=== PATIENT | female | born 1940 | race Caucasian/White ===

== ENCOUNTER 2017-03-23 08:15 | Emergency (ER) | payer MEDICARE ==
[2017-03-23] MEDS ORDERED: PROAIR RESPICL90 MCG INH (14:28)
[2017-03-23] MEDS ORDERED: ELAVIL50 MG PO (14:29)
[2017-03-23] MEDS ORDERED: TENORMIN25 MG PO (14:29)
[2017-03-23] MEDS ORDERED: CELEXA40 MG PO (14:30)
[2017-03-23] MEDS ORDERED: NEURONTIN300 MG PO (14:30)
[2017-03-23] MEDS ORDERED: PRILOSEC20 MG PO (14:32)
[2017-03-23] MEDS ORDERED: SYNTHROID75 MCG PO (14:32)
[2017-03-23] MEDS ORDERED: GLUCOPHAGE850 MG PO (14:32)
[2017-03-23] MEDS ORDERED: ZOCOR40 MG PO (14:33)
[2017-03-23] MEDS ORDERED: CHILDREN'S ZYRT10 MG PO (14:34)
[2017-03-23] MEDS ORDERED: GENICIN500 MG PO ×2 (14:40)
[2017-03-23] MEDS ORDERED: CHONDROITIN SU PO (14:41)
[2017-03-23] MEDS ORDERED: VITAMIN B-12500 MCG PO (14:41)
== END 2017-03-23 10:00 | disposition short-term general hospital (02) ==
LOC: ER 08:15
DX: M25.512 Pain in left shoulder (principal); F41.9 Anxiety disorder, unspecified; J44.9 Chronic obstructive pulmonary disease, unspecified; E11.9 Type 2 diabetes mellitus without complications; I10 Essential (primary) hypertension; E03.9 Hypothyroidism, unspecified; Z88.5 Allergy status to narcotic agent; Z87.891 Personal history of nicotine dependence; Z88.8 Allergy status to other drugs, medicaments and biological substances; Z79.899 Other long term (current) drug therapy; Z79.84 Long term (current) use of oral hypoglycemic drugs
CPT/HCPCS: J1885